=== PATIENT | male | born 1980 | race Caucasian/White ===

== ENCOUNTER 2022-01-18 09:13 | Inpatient (IN) ==
[2022-01-18 10:27] LABS: Basophils % 0.4 % (0.0-0.8); Eosinophils # 0.1 10*3/uL (0.0-0.87); Eosinophils % 1.3 % (0.00-10.9); Hematocrit 44.9 VOL% (42.0-52.0); Hemoglobin 14.9 GM/DL (14.0-18.0); Immature Granulocytes % 0.3 %; Immature Granulocytes Absolute 0.02 #; Lymphocytes # 1.3 10*3/uL (1.4-4.0); Lymphocytes % 19.6 % (21.2-54.2); Mean Corpuscular HGB Conc 33.2 GM/DL (32-36); Mean Corpuscular Volume 86.2 FL (87-102); Mean Platelet Volume 11.1 FL (9.6-12.0); Monocytes # 0.6 10*3/uL (0.11-0.8); Monocytes % 8.6 % (1.7-12.7); Neutrophils % 69.8 % (38.7-73.9); Platelet Count 187 T/CUMM (130-400); Red Blood Count 5.21 MC/CUMM (3.8-5.5); White Blood Count 6.8 T/CUMM (4-12)
[2022-01-18] MEDS ORDERED: ONDANSETRON 4 MG/2 ML VIAL IV STA (10:30)
[2022-01-18] MEDS ORDERED: MORPHINE 2 MG/1 ML SYRINGE IV STA (10:30)
[2022-01-18 10:47] LABS: Albumin 3.6 G/DL (3.4-5.0); Bilirubin,Total 0.5 MG/DL (0.20-1.00); Calcium 9.2 MG/DL (8.5-10.1); Potassium 3.5 MMOL/L (3.5-5.1); Total Protein 7.6 G/DL (6.4-8.2)
[2022-01-18] MEDS ORDERED: DIPH/TET/ACEL PERT BOOSTER VACCINE 0.5 ML VIAL IM ONE (12:06)
[2022-01-18] MEDS ORDERED: ZALEPLON 5 MG CAPSULE PO PRN (12:20)
[2022-01-18] MEDS ORDERED: MAGNESIUM HYDROXIDE SUSP 30 ML UDCUP PO PRN (12:20)
[2022-01-18] MEDS: lisinopriL 20 MG TABLET PO SCH (20:02)
[2022-01-18] MEDS ORDERED: DOXYCYCLINE HYCLATE 100 MG CAPSULE PO SCH (21:00)
[2022-01-19] MEDS ORDERED: LACTATED RINGERS 1,000 ML IV SCH (00:01)
[2022-01-19] MEDS: PANTOPRAZOLE 40 MG TABLET PO SCH (09:00)
[2022-01-19] MEDS ORDERED: IBUPROFEN 400 MG TABLET PO PRN (13:53)
[2022-01-19] MEDS: lisinopriL 20 MG TABLET PO SCH (21:59)
[2022-01-20 08:38] VITALS: BP 145/87
[2022-01-20] MEDS: PANTOPRAZOLE 40 MG TABLET PO SCH (09:05)
== END 2022-01-20 10:15 | disposition home or self-care (01) | DRG 603 ==
LOC: N.ED 09:13 → N.EDINP 12:21 → N.3E 17:57
PROVIDERS: ADMIT Orthopaedic Surgery; ATTEND Orthopaedic Surgery